=== PATIENT | female | born 1965 | race Caucasian/White ===

== ENCOUNTER 2020-02-01 21:38 | Emergency (ER) | payer OTHER ==
[~2020-02-01] VITALS: Ht 165.1 cm; Wt 83.9 kg
--- NOTE | 2020-02-01 22:38 | NUR ---
DR CARDOSO INTO EVAL PATIENT
--- NOTE | 2020-02-01 23:05 | NUR ---
Patient discharged to home in stable condition. Written and verbal after care instructions given. Patient verbalizes understanding of instructions. Stressed follow up or return to ER for worsening s/s.
[2020-02-01 23:06] VITALS: BP 141/101
== END 2020-02-01 23:07 | disposition home or self-care (01) ==
LOC: ER 21:39
DX: R60.0 Localized edema (principal); M79.641 Pain in right hand; E66.01 Morbid (severe) obesity due to excess calories; Z68.30 Body mass index [BMI] 30.0-30.9, adult; E78.5 Hyperlipidemia, unspecified; R03.0 Elevated blood-pressure reading, without diagnosis of hypertension; K21.9 Gastro-esophageal reflux disease without esophagitis
CPT/HCPCS: A4663